=== PATIENT | male | born 1980 | race Caucasian/White ===

== ENCOUNTER → 2020-04-03 | Outpatient (CLI) | payer BC ==
[~2020-04-03] MED LIST: FLEXERIL; IBUPROFEN 800800 M1; TRAMADOL 50 MG50 MG PO
== END ==
LOC: M.PC 09:16
PROVIDERS: ATTEND Physical Medicine & Rehabilitation
DX: M47.816 Spondylosis without myelopathy or radiculopathy, lumbar region (principal); Z79.891 Long term (current) use of opiate analgesic